=== PATIENT | male | born 1980 | race Two or more races ===

== ENCOUNTER 2016-12-11 13:23 | Emergency (ER) | payer SELFPAY ==
[2016-12-11 13:28] VITALS: BP 152/102; PULSE 81; TEMP 98.3; BMI 33.4
[2016-12-11] MEDS ORDERED: KETOROLAC TROMETHAMINE 60 MG/2 ML VIAL IM ONE (14:20)
[2016-12-11] MEDS ORDERED: diazePAM 5 MG TABLET PO ONE (14:20)
[2016-12-11] MEDS ORDERED: diazePAM 5 MG TABLET ONE (14:27)
[2016-12-11] MEDS ORDERED: KETOROLAC TROMETHAMINE 60 MG/2 ML VIAL ONE (14:28)
--- NOTE | 2016-12-11 14:37 | PDOC ---
"History of Present Illness - General Chief Complaint: Back Pain Stated Complaint: BACK PAIN Time Seen by Provider: 12/11/16 14:03 History Source: Patient Exam Limitations: No Limitations - History of Present Illness Initial Comments: 12/11/16 14:42 Chief complaint: Left-sided lower back pain with radiation down left buttocks and thigh 2 days History of present illness: Patient is a 36-year-old male with no significant medical history here today complaining of sudden onset of left-sided lower back pain that radiates down his left buttocks to his left posterior thigh 2 days that he felt at first when getting up from lying down. Patient denies any heavy lifting or any strenuous activities prior to this. Patient reports that he had similar symptoms approximately a few months ago that resolved after 5 days. Patient denies any numbness of his legs or weakness of legs or any saddle anesthesia or incontinency. Patient reports that pain is currently a 9 out of 10 and is worse when putting pressure on his left leg causing him difficulty walking. Patient has taken Aleve early this morning and put a thermal care patch on his lower back without relief of symptoms. Occurred: reports: just prior to arrival Severity: reports: severe (left sided lower back pain with radiculopathy posterior buttock left down left posterior thigh ) Pain Location: reports: back (left sided lower back pain with radiculopathy posterior buttock left down left posterior thigh ) Method of Injury: Yes: unknown Modifying Factors: improves with: None Associated Symptoms (Fall): trouble walking (increased pain with weight on left leg) Past History - Past Medical History Allergies/Adverse Reactions: Allergies Allergy/AdvReac Type Severity Reaction Status Date / Time No Known Allergies Allergy Verified 12/11/16 13:24 Home Medications: Ambulatory Orders Cyclobenzaprine HCl [Flexeril 10 mg] 10 mg PO Q8H PRN #21 tablet 12/11/16 Naproxen [Naprosyn -] 500 mg PO BID PRN #14 tablet 12/11/16 Oxycodone HCl/Acetaminophen [Percocet 5-325 mg Tablet] 1 tab PO Q6H PRN #6 tablet MDD 4 12/11/16 Other medical history: none - Psycho/Social/Smoking Cessation Hx Anxiety: No Suicidal Ideation: No Smoking History: Never smoked Have you smoked in the past 12 months: No Information on smoking cessation initiated: No Hx Alcohol Use: No Drug/Substance Use Hx: No Substance Use Type: None Review of Systems - Review of Systems Able to Perform ROS?: Yes Constitutional: No: Symptoms Reported HEENTM: No: Symptoms Reported Respiratory: No: Symptoms reported Cardiac (ROS): No: Symptoms Reported ABD/GI: No: Symptoms Reported : No: Symptoms Reported Musculoskeletal: Yes: Back Pain (left lower back radiates to left buttock down left posterior thigh ) Integumentary: No: Symptoms Reported Neurological: No: Symptoms reported *Physical Exam - Vital Signs Last Vital Signs Temp Pulse Resp BP Pulse Ox 98.3 F 81 18 152/102 100 12/11/16 13:26 12/11/16 13:26 12/11/16 13:26 12/11/16 13:26 12/11/16 13:26 - Physical Exam General Appearance: Yes: Appropriately Dressed Respiratory/Chest: positive: Lungs Clear, Normal Breath Sounds. negative: Chest Tender, Respiratory Distress Cardiovascular: positive: Regular Rhythm, Regular Rate, S1, S2 Musculoskeletal: positive: Normal Inspection, Decreased Range of Motion ( flexion at waist decreased ), Muscle Spasm (left paraspinal muscle). negative: CVA Tenderness, CVA Tenderness (R), CVA Tenderness (L), Vertebral Tenderness Extremity: positive: Normal Capillary Refill, Normal Inspection, Normal Range of Motion Integumentary: positive: Normal Color Neurologic: positive: Alert, Normal Response, Motor Strength 5/5, Respond to painful stimul (b/l legs ), Responsive. negative: Numbness, Sensory Deficit Deep Tendon Reflexes: Ankle (L): 4+, Ankle (R): 4+, Knee (L): 4+, Knee (R): 4+ ED Treatment Course - RADIOLOGY Radiology Studies Ordered: Category Date Time Status SPINE-LUMBAR SACRAL [RAD] Stat Radiology 12/11/16 14:21 Ordered Medical Decision Making - Medical Decision Making 12/11/16 14:46 Patient is a 36-year-old male with no significant medical history here today complaining of sudden onset of left-sided lower back pain that radiates down his left buttocks to his left posterior thigh 2 days that he felt at first when getting up from lying down. Patient denies any heavy lifting or any strenuous activities prior to this. Patient reports that he had similar symptoms approximately a few months ago that resolved after 5 days. Patient denies any numbness of his legs or weakness of legs or any saddle anesthesia or incontinency. Patient reports that pain is currently a 9 out of 10 and is worse when putting pressure on his left leg causing him difficulty walking. Patient has taken Aleve early this morning and put a thermal care patch on his lower back without relief of symptoms. Pt. has never seen an orthopedist. LEFT SIDED LUMBAR RADICULOPATHY PLAN; TORADOL 60 MG IM NOW VALIUM 5 MG PO NOW XRAY LUMBAR SACRAL SPINE normal lordotic curve, T12 vertebral wedging noted per Dr. Batres 12/11/16 15:36 Feeling better decreased pain will discharge to home with: ortho referral for 12/13/16 naprosyn 500 mg bid prn pain X 14 tabs flexeril 10 mg ebery 8 hrs prn muscle spasm percocet 5mg /325 mg every 6 hr prn severe pain # 18 [employer] checked Search Terms: tevin Groves, 1980 Search Date: 12/11/2016 03:44:45 PM Search Terms: tevin [place], 1980 Search Date: 12/11/2016 03:44:45 PM The Drug Utilization Report below displays all of the controlled substance prescriptions, if any, that your patient has filled in the last twelve months. The information displayed on this report is compiled from pharmacy submissions to the Department, and accurately reflects the information as submitted by the pharmacies. This report was requested by: Clemencia Vickers | Reference #: [id number] 12/11/16 15:45 12/11/16 22:33 12/11/16 22:34 *DC/Admit/Observation/Transfer Diagnosis at time of Disposition: Lumbar pain with radiation down left leg - Discharge Dispostion Disposition: HOME Condition at time of disposition: Stable - Prescriptions Prescriptions: Cyclobenzaprine HCl [Flexeril 10 mg] 10 mg PO Q8H PRN #21 tablet PRN Reason: Muscle Spasms Naproxen [Naprosyn -] 500 mg PO BID PRN #14 tablet PRN Reason: Pain Oxycodone HCl/Acetaminophen [Percocet 5-325 mg Tablet] 1 tab PO Q6H PRN #6 tablet MDD 4 PRN Reason: Severe Pain - Referrals Referrals: López Monique MD [Staff Physician] - - Patient Instructions Additional Instructions: Avoid any strenuous activities or exercise Return to emergency room if symptoms worsen worsening pain, weakness or numbness of legs or private area or inability to control urination or defecation Follow-up with orthopedist on 12/13/2016 for further evaluation Patient voiced understanding of discharge instructions and all questions were answered"
== END 2016-12-11 16:03 | disposition home or self-care (01) ==
LOC: JERFT 13:23
PROC: 3E0233Z Introduction of Anti-inflammatory into Muscle, Percutaneous Approach (ICD-10-PCS; principal; 2016-12-11)
DX: M54.16 Radiculopathy, lumbar region (principal)
CPT/HCPCS: 72100-TC; 99281-25